=== PATIENT | female | born 1985 | race Caucasian/White ===

== ENCOUNTER 2017-04-09 14:00 | Emergency (ER) | payer MEDICAID ==
[~2017-04-09] VITALS: Ht 165.1 cm; Wt 100.0 kg
[2017-04-09 14:10] VITALS: BP 104/58
--- NOTE | 2017-04-09 14:17 | NUR ---
ORANGE JUICE AND CRACKERS GIVEN
--- NOTE | 2017-04-09 14:21 | NUR ---
Patient ambulated to bed 7 with family. RN evaluating patient at bedside.
--- NOTE | 2017-04-09 14:25 | NUR ---
32F BIB FAMILY C/O LIGHT VAGINAL BLEEDING ONLY UPON WIPING X TODAY; PT STATES 16 WEEKS AT THIS TIME; A1; PT STATES NOTICED "GREEN DISCHARGE" X TODAY WELL; PT STATES NO PAIN OR DISCOMFORT AT THIS TIME; PT STATES NO N/V/D AT THIS TIME; PT AA&OX4, PERRLA, BL LUNG SOUNDS CLEAR, RR EVEN/UNLABORED, SKIN IS WARM/DRY/INTACT AT THIS TIME; STEADY GAIT; PT RESTING IN BED WITH HOB ELEVATED AND IN LOWEST POSITION; POSITIONED FOR COMFORT; ER MD MADE AWARE OF STATUS. WILL CONTINUE TO MONITOR.
--- NOTE | 2017-04-09 15:35 | NUR ---
ER MD DR. JOHNSON EVALUATING PT AT BEDSIDE.
[2017-04-09 15:59] VITALS: BP 108/57
== END 2017-04-09 16:00 | disposition home or self-care (01) ==
LOC: MED 14:00
DX: O46.92 Antepartum hemorrhage, unspecified, second trimester (principal); O23.42 Unspecified infection of urinary tract in pregnancy, second trimester; Z3A.16 16 weeks gestation of pregnancy
CPT/HCPCS: 81002; 81025; 99284

== ENCOUNTER 2019-04-12 11:16 | Emergency (ER) | payer MEDICAID, OTHER ==
[~2019-04-12] VITALS: Ht 167.6 cm; Wt 93.4 kg
[2019-04-12 11:30] VITALS: BP 113/70
--- NOTE | 2019-04-12 11:38 | NUR ---
PT SENT TO LOBBY. MADE AWARE . DACIA TO WAIT. STABLE AT THIS TIME.
--- NOTE | 2019-04-12 11:50 | NUR ---
Note undone in EDM - 04/12/19 at 1257 by MEDHR adPT STATES HAVING VAGINAL BLEEDING WITH OCCASIONAL CRAMPS. STARTED THIS MORNING. PT STATES SEES PINK DISCHARGE WHILE WIPING. PT IS 7 WEEKS OF [place]ANA[place], AND EXPECTED DECEMBER 03, 2019. A0. DENIES NAUEA, VOMITING, FEVER, ABNORMAL VAGINAL DISCHARGE OR ITCHY AT THIS TIME. PATIENT STATES PAIN OF 0/10 AT THIS TIME; VSS; PATIENT POSITIONED FOR COMFORT; HOB ELEVATED; BEDRAILS UP X1; BED DOWN. ER MD MADE AWARE OF PT STATUS.
--- NOTE | 2019-04-12 12:15 | NUR ---
PT TAKEN TO BED 3.
--- NOTE | 2019-04-12 12:25 | NUR ---
adPT STATES HAVING VAGINAL BLEEDING WITH OCCASIONAL CRAMPS. STARTED THIS MORNING. PT STATES SEES PINK DISCHARGE WHILE WIPING. PT IS 7 WEEKS OF [place]ANA[place], AND EXPECTED DECEMBER 03, 2019. A0. DENIES NAUEA, VOMITING, FEVER, ABNORMAL VAGINAL DISCHARGE OR ITCHY AT THIS TIME. PATIENT STATES PAIN OF 0/10 AT THIS TIME; VSS; PATIENT POSITIONED FOR COMFORT; HOB ELEVATED; BEDRAILS UP X1; BED DOWN. ER MD MADE AWARE OF PT STATUS.
[2019-04-12 12:50] LABS: APPEARANCE,URINE HAZY (CLEAR); BILIRUBIN,URINE NEGATIVE (NEGATIVE); BLOOD, URINE NEGATIVE (NEGATIVE); COLOR,URINE YELLOW (YELLOW); LEUKOCYTE ESTERASE ,URINE NEGATIVE (NEGATIVE); NITRITE, URINE NEGATIVE (NEGATIVE); UGLUCOSE TRACE (NEGATIVE)
[2019-04-12 12:56] LABS: BASOPHILS % (AUTO) 0.4 % (0.0-2.0); EOSINOPHILS # (AUTO) 0.1 K/uL (0-0.4); EOSINOPHILS % (AUTO) 0.7 % (0.0-4.0); HEMATOCRIT 39.4 % (36-48); LYMPHOCYTES # (AUTO) 2.2 K/uL (2.5-16.5); LYMPHOCYTES % (AUTO) 29.1 % (20.5-51.1); MEAN CORPUSCULAR HEMOGLOBIN 27 pg (27-31); MEAN CORPUSCULAR HGB CONC 33 g/dL (33-37); MEAN CORPUSCULAR VOLUME 80.8 fL (80-94); MONOCYTES # (AUTO) 0.4 K/uL (0.8-1.0); MONOCYTES % (AUTO) 5.5 % (1.7-9.3); NEUTROPHILS % (AUTO) 64.3 % (42.2-75.2); PLATELET COUNT (AUTO) 274 K/uL (140-450); RED BLOOD CELL COUNT(AUTO) 4.88 MIL/uL (4.20-5.40); RED CELL DISTRIBUTION WIDTH 16.3 % (11.6-13.7); WHITE BLOOD COUNT (AUTO) 7.7 K/uL (4.8-10.8)
[2019-04-12 12:59] LABS: RBC,URINE 0-5 /HPF (0-5); WBC,URINE 0-5 /HPF (0-5)
[2019-04-12 13:43] VITALS: BP 116/67
--- NOTE | 2019-04-12 13:45 | NUR ---
Patient discharged with v/s stable. Pt encouraged to rest, stay hydrated and to avoid tampons and sexual intercourse. Written and verbal after care instructions given and explained. Patient verbalized understanding. Ambulatory with steady gait. All questions addressed prior to discharge. Advised to follow up with OBGYN in 2-3days.
== END 2019-04-12 13:45 | disposition home or self-care (01) ==
LOC: MED 11:16
DX: O20.0 Threatened abortion (principal); O24.111 Pre-existing type 2 diabetes mellitus, in pregnancy, first trimester; E11.9 Type 2 diabetes mellitus without complications; Z3A.01 Less than 8 weeks gestation of pregnancy
CPT/HCPCS: 36415; 76817; 81001; 81025; 84702; 85025; 86900; 86901; 99284; Q0092

== ENCOUNTER 2020-10-01 01:48 | Emergency (ER) | payer OTHER ==
[~2020-10-01] VITALS: Ht 167.6 cm; Wt 97.5 kg
[2020-10-01 01:54] VITALS: BP 107/71
--- NOTE | 2020-10-01 01:54 | NUR ---
TO BED AMBULATORY
[2020-10-01] MEDS ORDERED: PHEN-1593 PO (02:03)
[2020-10-01] MEDS ORDERED: PHENAZOPYRIDINE 100 MG TAB PO STA ×2 (02:03→02:06)
[2020-10-01] MEDS ORDERED: CEPH500C16 PO (02:03)
[2020-10-01] MEDS ORDERED: cephALEXin 500 MG CAP PO STA ×2 (02:03→02:06)
[2020-10-01] MEDS ORDERED: IBUPROFEN 400 MG TAB PO STA ×2 (02:03→02:06)
--- NOTE | 2020-10-01 02:05 | NUR ---
35/F BIB SELF COMPLAINING OF PAINFUL URINATION 12/27. PT ALSO VERBALIZED HAVING TEA COLORED URINE. PT DENIES ANY FLANK PAIN. PMH: DEV ALARCON
[2020-10-01 02:20] VITALS: BP 107/71
--- NOTE | 2020-10-01 02:21 | NUR ---
Patient discharged with v/s stable. Written and verbal after care instructions given and explained. Patient alert, oriented and verbalized understanding of instructions. Ambulatory with steady gait. All questions addressed prior to discharge. ID band removed. Patient advised to follow up with PMD. Rx of PYRIDIUM, KEFLEX given. Patient educated on indication of medication including possible reaction and side effects. Opportunity to ask questions provided and answered.
== END 2020-10-01 02:21 | disposition home or self-care (01) ==
LOC: MED 01:48
DX: N39.0 Urinary tract infection, site not specified (principal); R30.0 Dysuria; E11.9 Type 2 diabetes mellitus without complications; R35.0 Frequency of micturition
CPT/HCPCS: 99284

== ENCOUNTER 2020-10-20 19:23 | Emergency (ER) | payer OTHER ==
[~2020-10-20] VITALS: Ht 167.6 cm; Wt 90.7 kg
[~2020-10-20 19:23] MED LIST: CEPH500C16 PO; PHEN-1593 PO
[2020-10-20 19:33] VITALS: BP 119/71
--- NOTE | 2020-10-20 19:35 | NUR ---
TO LOBBY A/W BED AMBULATORY
[2020-10-20] MEDS ORDERED: PYR100 PO (19:52)
[2020-10-20] MEDS ORDERED: CEPH-588 PO (19:52)
--- NOTE | 2020-10-20 20:08 | NUR ---
35/F BIB SELF COMPLAINING OF PAINFUL URINATION 5/10 FOR 2 DAYS NOW. PT VERBALIZED NO DISCHARGE NOTED AND NORMAL URINE COLOR. PT DENIES ANY FEVER, CHILLS, N/V/D. PMH: DEV ALARCON
[2020-10-20 20:20] VITALS: BP 119/71
--- NOTE | 2020-10-20 20:20 | NUR ---
Patient discharged with v/s stable. Written and verbal after care instructions given and explained. Patient alert, oriented and verbalized understanding of instructions. Ambulatory with steady gait. All questions addressed prior to discharge. ID band removed. Patient advised to follow up with PMD. Rx of KEFLEX, PYRIDIUM given. Patient educated on indication of medication including possible reaction and side effects. Opportunity to ask questions provided and answered.
== END 2020-10-20 20:20 | disposition home or self-care (01) ==
LOC: MED 19:23
DX: N39.0 Urinary tract infection, site not specified (principal); E11.9 Type 2 diabetes mellitus without complications; Z79.899 Other long term (current) drug therapy
CPT/HCPCS: 81002; 81025; 87086; 99283

== ENCOUNTER 2020-12-30 18:22 | Emergency (ER) | payer OTHER ==
[~2020-12-30] VITALS: Ht 167.6 cm; Wt 96.2 kg
[~2020-12-30 18:22] MED LIST changes: +CEPH-588 PO; +PYR100 PO
[2020-12-30 19:04] VITALS: BP 144/75
--- NOTE | 2020-12-30 19:10 | NUR ---
STEFAN. HANDED ON URINE CUP.
--- NOTE | 2020-12-30 20:10 | NUR ---
TO ER BED 8
--- NOTE | 2020-12-30 20:10 | NUR ---
35 Y/O FEMALE PATIENT PRESENTS TO ED WITH VAGINAL BLEEDING. PT STATES "I HAVE BEEN NOTICING SMALL DROPS OF BLOOD IN MY PEE, AND I GOT WORRIED ABOUT IT" . DENIES N/V/D; SKIN IS PINK/WARM/DRY; AAOX4 WITH EVEN AND STEADY GAIT; LUNGS CLEAR BL; HR EVEN AND REGULAR; PT DENIES ANY FEVER, CP, SOB, OR COUGH AT THIS TIME; PATIENT STATES PAIN OF 0/10 AT THIS TIME; VSS; PATIENT POSITIONED FOR COMFORT; HOB ELEVATED; BEDRAILS UP X2; BED DOWN. ER MD MADE AWARE OF PT STATUS. 11 WEEKS NKA PMH: DM TYPE 2 G5 M2 L3
--- NOTE | 2020-12-30 20:29 | NUR ---
Patient being evaluated by physician at bedside.
--- NOTE | 2020-12-30 21:45 | NUR ---
Patient discharged with v/s stable. Written and verbal after care instructions given and explained. Patient verbalized understanding. Ambulatory with steady gait. All questions addressed prior to discharge. Advised to follow up with PMD.
== END 2020-12-30 21:45 | disposition home or self-care (01) ==
LOC: MED 18:22
DX: O20.8 Other hemorrhage in early pregnancy (principal); E11.9 Type 2 diabetes mellitus without complications; Z3A.11 11 weeks gestation of pregnancy; Z79.899 Other long term (current) drug therapy
CPT/HCPCS: 82948; 99284

== ENCOUNTER 2022-07-23 18:58 | Emergency (ER) | payer OTHER ==
[~2022-07-23] VITALS: Ht 167.6 cm; Wt 90.9 kg
[2022-07-23 19:02] VITALS: BP 113/72
--- NOTE | 2022-07-23 19:15 | NUR ---
PT AMB TO BED
--- NOTE | 2022-07-23 19:30 | NUR ---
37YR OLD FEMALE BIB SELF C/O DOG BITE TO FIRST DIGIT ON R HAND. DOG WAS NEIGHBORS. SMALL LAC TO DIGIT WITH SKIN AVULSION. DENIES ANY OTHER WOUNDS. PAIN LEVEL 2/10. ANIMAL REPORT COMPLETED BY PT. DRE NO HX
[2022-07-23] MEDS ORDERED: LIDOCAINE MPF 1% 10 MG/ML VIAL INJ ONE (19:45)
[2022-07-23] MEDS ORDERED: LIDOCAINE MPF 1% 10 ML ONE (19:45)
[2022-07-23] MEDS ORDERED: BACITRACIN OINT 500 UNITS/GM PKT TP ONE (19:45)
--- NOTE | 2022-07-23 19:50 | NUR ---
DRESSING TO FINGER
[2022-07-23] MEDS ORDERED: BACI28.43 TP (20:05)
[2022-07-23] MEDS ORDERED: AMOX-1230 PO (20:05)
--- NOTE | 2022-07-23 21:10 | NUR ---
The patient's care was reviewed and supervised by Gricelda Link RN, RN.
== END 2022-07-23 20:38 | disposition home or self-care (01) ==
LOC: MED 18:58
DX: S61.210A Laceration without foreign body of right index finger without damage to nail, initial encounter (principal); E11.9 Type 2 diabetes mellitus without complications; Z79.4 Long term (current) use of insulin; Z79.899 Other long term (current) drug therapy; W54.0XXA Bitten by dog, initial encounter; Y93.89 Activity, other specified; Y92.89 Other specified places as the place of occurrence of the external cause; Y99.8 Other external cause status
CPT/HCPCS: 12001; 90471; 90715; 99283; J2001

== ENCOUNTER 2022-07-25 15:08 | Emergency (ER) | payer OTHER ==
[~2022-07-25] VITALS: Ht 167.6 cm; Wt 90.5 kg
[~2022-07-25 15:08] MED LIST changes: +AMOX-1230 PO; +BACI28.43 TP
[2022-07-25 15:18] VITALS: BP 149/87
--- NOTE | 2022-07-25 15:24 | NUR ---
BIB SELF FOR RIGHT INDEX FINGER WOUND CHECK S/P DOG BITE 2 DAYS AGO. WOUND C/D/I. 0/10 PAIN AT THIS TIME.
--- NOTE | 2022-07-25 15:46 | NUR ---
Patient being evaluated by PA RETANA at [facility].
[2022-07-25 15:47] VITALS: BP 149/87
== END 2022-07-25 15:47 | disposition home or self-care (01) ==
LOC: MED 15:08
DX: S61.250D Open bite of right index finger without damage to nail, subsequent encounter (principal); E11.9 Type 2 diabetes mellitus without complications; Z48.00 Encounter for change or removal of nonsurgical wound dressing; Z79.4 Long term (current) use of insulin; Z79.899 Other long term (current) drug therapy; X58.XXXD Exposure to other specified factors, subsequent encounter
CPT/HCPCS: 99281

== ENCOUNTER 2022-08-08 19:02 | Emergency (ER) | payer OTHER ==
[~2022-08-08] VITALS: Ht 167.6 cm; Wt 92.1 kg
[2022-08-08 19:18] VITALS: BP 133/80
--- NOTE | 2022-08-08 19:24 | NUR ---
DARRELL BOWEN examining patient
--- NOTE | 2022-08-08 19:25 | NUR ---
DARRELL BOWEN -procedure suture removal on right index finger, patient tolerated well.
[2022-08-08 19:30] VITALS: BP 133/80
== END 2022-08-08 19:30 | disposition home or self-care (01) ==
LOC: MED 19:02
DX: S61.210D Laceration without foreign body of right index finger without damage to nail, subsequent encounter (principal); Z48.02 Encounter for removal of sutures; E11.9 Type 2 diabetes mellitus without complications; Z79.899 Other long term (current) drug therapy; Z79.2 Long term (current) use of antibiotics; W54.0XXD Bitten by dog, subsequent encounter
CPT/HCPCS: 99281